=== PATIENT | male | born 2000 | race Two or more races ===

== ENCOUNTER 2018-08-26 17:34 | Inpatient (IN) | payer OTHER ==
[~2018-08-26] VITALS: Ht 167.6 cm; Wt 69.9 kg
== END 2018-08-27 20:06 | disposition home or self-care (01) | DRG 312 ==
LOC: ER 17:34 → MEDJ 21:00
PROVIDERS: ADMIT Internal Medicine
PROC: BW28ZZZ Computerized Tomography (CT Scan) of Head (ICD-10-PCS; principal; 2018-08-26)
PROC: B246ZZZ Ultrasonography of Right and Left Heart (ICD-10-PCS; 2018-08-26)
PROC: BW38ZZZ Magnetic Resonance Imaging (MRI) of Head (ICD-10-PCS; 2018-08-26)
DX: R55 Syncope and collapse (principal)
CPT/HCPCS: 70545

== ENCOUNTER 2019-05-25 13:18 | Outpatient (CLI) | payer OTHER | END 2019-05-25 13:40 | disposition home or self-care (01) | LOC: LAB 13:18 | DX: J06.9 Acute upper respiratory infection, unspecified (principal); Z20.828 Contact with and (suspected) exposure to other viral communicable diseases; D64.89 Other specified anemias ==

== ENCOUNTER 2020-10-15 11:59 | Outpatient (CLI) | payer OTHER | END 2020-10-15 15:00 | disposition home or self-care (01) | LOC: LAB 11:59 | PROVIDERS: ATTEND Orthopaedic Surgery | DX: Z03.818 Encounter for observation for suspected exposure to other biological agents ruled out (principal); J11.1 Influenza due to unidentified influenza virus with other respiratory manifestations; D64.89 Other specified anemias ==

== ENCOUNTER 2020-12-19 08:06 | Emergency (ER) | payer OTHER ==
[~2020-12-19] VITALS: Ht 170.2 cm; Wt 81.6 kg
== END 2020-12-19 18:01 | disposition home or self-care (01) ==
LOC: ER 08:06
DX: K52.9 Noninfective gastroenteritis and colitis, unspecified (principal); R10.9 Unspecified abdominal pain

== ENCOUNTER 2021-01-20 19:18 | Emergency (ER) | payer OTHER ==
[~2021-01-20] VITALS: Ht 172.7 cm; Wt 70.3 kg
[2021-01-21] MEDS ORDERED: LEVSIN/SL0.125 MG SL (07:06)
[2021-01-21] MEDS ORDERED: INTESTINEX680 M1 PO (07:06)
[2021-01-21] MEDS ORDERED: PEPCID40 MG PO (07:06)
[2021-01-21] MEDS ORDERED: ZOFRAN8 MG PO (07:06)
== END 2021-01-21 07:25 ==
LOC: ER 19:18
DX: T62.91XA Toxic effect of unspecified noxious substance eaten as food, accidental (unintentional), initial encounter (principal); E86.0 Dehydration; X58.XXXA Exposure to other specified factors, initial encounter; Y92.89 Other specified places as the place of occurrence of the external cause

== ENCOUNTER 2021-09-11 11:16 | Outpatient (CLI) | payer OTHER ==
[~2021-09-11 11:16] MED LIST: INTESTINEX680 M1 PO; LEVSIN/SL0.125 MG SL; PEPCID40 MG PO; ZOFRAN8 MG PO
== END 2021-09-11 11:24 | disposition home or self-care (01) ==
LOC: LAB 11:16
PROVIDERS: ATTEND Orthopaedic Surgery
DX: D64.9 Anemia, unspecified (principal); M06.4 Inflammatory polyarthropathy; E55.9 Vitamin D deficiency, unspecified; M85.9 Disorder of bone density and structure, unspecified; E88.9 Metabolic disorder, unspecified; E78.00 Pure hypercholesterolemia, unspecified

== ENCOUNTER 2021-09-11 13:25 | Outpatient (CLI) | payer OTHER | END 2021-09-11 13:40 | disposition home or self-care (01) | LOC: PPH VACUNA 13:25 | PROVIDERS: ATTEND Emergency Medicine Pediatric Emergency Medicine | DX: Z23 Encounter for immunization (principal) ==

== ENCOUNTER → 2022-04-23 09:36 | Outpatient (CLI) | payer OTHER | END | disposition home or self-care (01) | LOC: LAB 09:36 | PROVIDERS: ATTEND Orthopaedic Surgery | DX: E88.89 Other specified metabolic disorders (principal); D64.89 Other specified anemias; E11.9 Type 2 diabetes mellitus without complications; E78.00 Pure hypercholesterolemia, unspecified; A49.02 Methicillin resistant Staphylococcus aureus infection, unspecified site; J32.8 Other chronic sinusitis ==

== ENCOUNTER 2022-08-28 13:28 | Outpatient (CLI) | payer OTHER | END 2022-08-28 13:43 | disposition home or self-care (01) | LOC: TOM 13:28 | PROVIDERS: ATTEND Orthopaedic Surgery | DX: J01.80 Other acute sinusitis (principal) ==

== ENCOUNTER 2023-02-04 14:19 | Outpatient (CLI) | payer OTHER ==
[2023-02-04 15:35] LABS: URINE APPEARANCE Clear; URINE BILIRRUBIN Negative (NEGATIVE); URINE BLOOD Negative; URINE COLOR Dark Yellow; URINE GLUCOSE Negative (NEGATIVE); URINE LEUKOCYTE Negative; URINE NITRATE Negative; URINE PROTEIN Trace (NEGATIVE); URINE UROBILINOGEN 0.2 E.U./dl
[2023-02-04 15:40] LABS: URINE BACTERIA 28.9 uL (0.0-1933); URINE EPITHELIAL CELLS 8.3 uL (0.0-38.8); URINE RBC 2.2 uL (0.0-20.8); URINE WBC 3.2 uL (0.0-23.2)
[2023-02-04 15:44] LABS: HEMATOCRIT 43.8 % (36.0-45.00); HEMOGLOBIN 15.1 g/dL (12.0-15.00); MEAN CORPUSCULAR HGB CONC 34.5 g/dl (32.0-36.0); PLATELET COUNT 334 K/uL (150-450); RED BLOOD COUNT 5.04 M/uL (4.00-6.00); RED CELL DISTRIBUTION WIDTH 12.5 % (11.5-14.5)
[2023-02-04 16:21] LABS: ALBUMIN 4.7 gm/dL (3.4-5.0); BILIRUBIN TOTAL 0.48 mg/dL (0.3-1.2); CALCIUM 10.2 mg/dL (8.5-10.1); CREATININE SERUM 1.07 mg/dL (0.55-1.02); GLOBULINA 3.5 G/DL (2.4-3.5); POTASSIUM 4.15 mEq/L (3.5-5.1); TOTAL PROTEIN 8.2 gm/dL (6.4-8.2)
== END 2023-02-04 14:20 | disposition home or self-care (01) ==
LOC: LAB 14:19
PROVIDERS: ATTEND Orthopaedic Surgery
DX: D64.9 Anemia, unspecified (principal); E88.89 Other specified metabolic disorders; E11.9 Type 2 diabetes mellitus without complications; K81.9 Cholecystitis, unspecified

== ENCOUNTER 2023-02-04 14:54 | Outpatient (CLI) | payer OTHER | END 2023-02-04 15:11 | disposition home or self-care (01) | LOC: RAD 14:54 | PROVIDERS: ATTEND Orthopaedic Surgery | DX: R10.84 Generalized abdominal pain (principal) ==